=== PATIENT | male | born 1955 | race Caucasian/White ===

== ENCOUNTER → 2020-02-20 09:12 | Outpatient (CLI) | payer MEDICARE, OTHER, SELFPAY ==
--- NOTE | 2020-02-20 | DI.US.S_ITS ---
PROCEDURE: US ABD AORTA ANEURYSM SCREEN INDICATIONS: FAMILY HX OF ISCHEMIC HEART DISEASE TECHNIQUE: Real time scanning was performed of the aorta and iliac arteries, with image documentation. COMPARISON: None. FINDINGS: Aorta: Proximal aortic diameter measures 2.8 cm. Mid-aorta measures 2.2 cm. Distal aortic diameter is 2.0 cm. Iliac arteries: Right common iliac artery measures 1.6 cm. Left common iliac artery measures 1.6 cm. IMPRESSION: No abdominal aortic aneurysm. Proximal abdominal aorta is ectatic measuring 2.8 cm. A follow-up screening ultrasound is suggested in 5 years. Dictated by: Niurka Serrano M.D. on 02/20/2020 at 11:00 Approved by: Niurka Serrano M.D. on 02/20/2020 at 11:01
== END ==
PROVIDERS: PCP Family Medicine; Referring Provider Family Medicine; Visit Provider Family Medicine
DX: Z13.6 Encounter for screening for cardiovascular disorders (principal); I77.811 Abdominal aortic ectasia; Z82.49 Family history of ischemic heart disease and other diseases of the circulatory system
CPT/HCPCS: 76706

== ENCOUNTER → 2021-02-16 10:30 | Outpatient (CLI) | payer MEDICARE, OTHER, SELFPAY ==
--- NOTE | 2021-02-16 10:33 | DI.US.S_ITS ---
PROCEDURE: US SCROTUM INDICATIONS: RECURRENT/PERSISTENT SCROTAL FLUID COLLECTION TECHNIQUE: Real-time scanning was performed of the scrotum and testicles, with image documentation. Color and pulse Doppler interrogation was performed of both testicles. COMPARISON: None. FINDINGS: Right: Testicle is normal in size at 4.4 x 2.2 x 3.3 cm, and homogenous in echotexture. The visualized portions of the epididymis are normal in overall size and morphology. No varicoceles. Overlying scrotal skin is normal in thickness. A large fluid collection is seen posteroinferior to the right testicle measuring up to 11.6 x 4.9 x 7 cm with a few septations. Left: Testicle is normal in size at 5.3 x 2.2 x 3.3 cm, and homogeneous in echotexture. Epididymis is normal in overall size and morphology. No hydrocele or varicoceles. Overlying scrotal skin is normal in thickness. Doppler: Color and pulse Doppler demonstrate normal and symmetric arterial flow in both testicles. IMPRESSION: 1. No signs testicular torsion or epididymitis. 2. Large septated anechoic fluid collection in the right scrotum measures 11.6 x 4.9 x 7 cm, most likely a hydrocele or spermatocele. Dictated by: Robert Montano M.D. on 02/16/2021 at 13:44 Approved by: Robert Montano M.D. on 02/16/2021 at 13:50
== END ==
PROVIDERS: PCP Family Medicine; Referring Provider Specialist; Visit Provider Specialist
DX: N43.3 Hydrocele, unspecified (principal); R35.1 Nocturia
CPT/HCPCS: 76870; 99214

== ENCOUNTER → 2021-04-23 10:01 | Outpatient (CLI) | payer MEDICARE, OTHER, SELFPAY ==
[2021-04-23 19:37] LABS: Add Manual Diff / Slide Review NO; Basophils Absolute Auto 0 /uL (0-100); Basophils Percent Auto 0.5 % (0-2); Eosinophils Absolute Auto 300 /uL (0-450); Eosinophils Percent Auto 4.8 % (2-4); Hematocrit 46.2 % (41-53); Hemoglobin 15.4 g/dL (13.5-17.5); Lymphocytes Absolute Auto 1600 /uL (1100-4500); Lymphocytes Percent Auto 29.5 % (25-40); Mean Corpuscular HGB Conc 33.4 % (30-36); Mean Corpuscular Hemoglobin 30.2 PG (26-34); Mean Corpuscular Volume 90.4 fL (80-100); Monocytes Absolute Auto 500 /uL (0-900); Monocytes Percent Auto 8.5 % (3-14); Neutrophils Absolute Auto 3000 /uL (1500-7000); Neutrophils Percent Auto 56.7 % (50-75); Platelet Count 250 X10^3/uL (150-400); Red Cell Distribution Width 13.4 % (11.6-14.8); White Blood Cell Count 5.4 X10^3/uL (4.5-11.0)
[2021-04-23 19:44] LABS: Alanine Aminotransferase 21 IU/L (<50); Albumin 4.2 g/dL (3.5-5.0); Albumin Globulin Ratio 1.6 (1.0-2.8); Alkaline Phosphatase 52 U/L (38-126); Aspartate Aminotransferase 27 IU/L (17-59); BUN Creatinine Ratio 16.9 (6-22); Bilirubin Total 0.7 mg/dL (0.2-1.3); Blood Urea Nitrogen 13 mg/dL (9-20); Calcium 9.3 mg/dL (8.4-10.2); Carbon Dioxide 35 mmol/L (22-32); Chloride 104 mmol/L (98-107); Cholesterol 172 mg/dL (140-199); Estimated Glomerular Filt Rate > 60.0 mL/min (>60); Globulin 2.7 g/dL (1.7-4.1); Glucose 96 mg/dL (80-110); HDL Cholesterol 34 mg/dL (40-60); LDL Cholesterol Calculated 114 mg/dL (<100); Potassium 4.2 mmol/L (3.4-5.1); Sodium 142 mmol/L (137-145); Total Protein 6.9 g/dL (6.3-8.2); Triglycerides 118 mg/dL (35-150)
[2021-04-23 20:32] LABS: HEMOLYSIS < 15 (0-50); Prostate Specific Antigen Scrn 1.81 ng/mL (0.1-4.0)
== END ==
PROVIDERS: PCP Family Medicine; Visit Provider Family Medicine
DX: N52.9 Male erectile dysfunction, unspecified (principal); M54.16 Radiculopathy, lumbar region; Z12.5 Encounter for screening for malignant neoplasm of prostate; R79.89 Other specified abnormal findings of blood chemistry; Z13.220 Encounter for screening for lipoid disorders
CPT/HCPCS: 80053; 80061; 85025; G0103

== ENCOUNTER → 2022-04-30 10:19 | Outpatient (CLI) | payer MEDICARE, OTHER, SELFPAY | PROVIDERS: PCP Family Medicine; Referring Provider Family Medicine; Visit Provider Family Medicine | DX: R30.0 Dysuria (principal) | CPT/HCPCS: 87077; 87086; 87186 ==

== ENCOUNTER → 2022-06-22 08:44 | Outpatient (CLI) | payer MEDICARE, OTHER, SELFPAY ==
[2022-06-22 11:08] LABS: Cholesterol 204 mg/dL (140-199); Glucose 95 mg/dL (80-110); HDL Cholesterol 46 mg/dL (40-60); LDL Cholesterol Calculated 132 mg/dL (<100); Triglycerides 132 mg/dL (35-150)
[2022-06-22 11:39] LABS: Prostate Specific Antigen 3.01 ng/mL (0.10-4.00)
[2022-06-23 16:59] LABS: Hep C Virus Ab w/Reflex Quant NEGATIVE s/c (NEGATIVE)
== END ==
PROVIDERS: PCP Family Medicine; Referring Provider Family Medicine; Visit Provider Family Medicine
DX: N52.9 Male erectile dysfunction, unspecified (principal); Z12.5 Encounter for screening for malignant neoplasm of prostate; Z13.1 Encounter for screening for diabetes mellitus; Z13.220 Encounter for screening for lipoid disorders; Z11.59 Encounter for screening for other viral diseases; R35.1 Nocturia
CPT/HCPCS: 36415; 80061; 82947; 84153; 86803; G0103

== ENCOUNTER → 2023-08-03 08:58 | Outpatient (CLI) | payer MEDICARE, OTHER, SELFPAY ==
[2023-08-03 19:27] LABS: Cholesterol 177 mg/dL (140-199); Glucose 96 mg/dL (80-110); HDL Cholesterol 52 mg/dL (40-60); LDL Cholesterol Calculated 104 mg/dL (<100); Triglycerides 107 mg/dL (35-150)
[2023-08-03 19:57] LABS: Prostate Specific Antigen Scrn 2.08 ng/mL (0.1-4.0)
[2023-08-03 20:18] LABS: Hep C Virus Ab w/Reflex Quant NEGATIVE s/c (NEGATIVE)
== END ==
PROVIDERS: PCP Family Medicine; Visit Provider Family Medicine
DX: Z13.6 Encounter for screening for cardiovascular disorders (principal); Z12.5 Encounter for screening for malignant neoplasm of prostate; Z13.1 Encounter for screening for diabetes mellitus; Z13.220 Encounter for screening for lipoid disorders; Z11.59 Encounter for screening for other viral diseases
CPT/HCPCS: 80061; 82947; 86803; G0103

== ENCOUNTER → 2023-11-24 11:33 | Outpatient (CLI) | payer MEDICARE, OTHER, SELFPAY ==
[2023-11-24 18:09] LABS: Add Manual Diff / Slide Review NO; Basophils Absolute Auto 0 /uL (0-100); Basophils Percent Auto 0.8 % (0-2); Eosinophils Absolute Auto 200 /uL (0-450); Eosinophils Percent Auto 3.6 % (2-4); Hematocrit 44.5 % (41-53); Hemoglobin 15.1 g/dL (13.5-17.5); Lymphocytes Absolute Auto 1600 /uL (1100-4500); Lymphocytes Percent Auto 28.6 % (25-40); Mean Corpuscular HGB Conc 33.9 % (30-36); Mean Corpuscular Hemoglobin 31.3 PG (26-34); Mean Corpuscular Volume 92.2 fL (80-100); Monocytes Absolute Auto 500 /uL (0-900); Monocytes Percent Auto 8.6 % (3-14); Neutrophils Absolute Auto 3300 /uL (1500-7000); Neutrophils Percent Auto 58.4 % (50-75); Platelet Count 238 X10^3/uL (150-400); Red Blood Cell Count 4.82 X10^6/uL (4.5-5.9); Red Cell Distribution Width 13.8 % (11.6-14.8); White Blood Cell Count 5.6 X10^3/uL (4.5-11.0)
[2023-11-24 18:20] LABS: BUN Creatinine Ratio 24.7 (6-22); Blood Urea Nitrogen 18 mg/dL (9-20); Calcium 9.7 mg/dL (8.4-10.2); Carbon Dioxide 30 mmol/L (22-32); Chloride 103 mmol/L (98-107); Estimated Glomerular Filt Rate > 60 mL/min (>60); Glucose 96 mg/dL (80-110); HEMOLYSIS 32 (0-50); Potassium 4.5 mmol/L (3.4-5.1); Sodium 137 mmol/L (137-145)
== END ==
PROVIDERS: PCP Family Medicine; Visit Provider Family Medicine
DX: R00.2 Palpitations (principal)
CPT/HCPCS: 80048; 85025

== ENCOUNTER 2024-01-09 07:03 | Day surgery (SDC) | payer MEDICARE, OTHER, SELFPAY ==
--- NOTE | 2024-01-09 07:42 | P.HP_ITS ---
History of Present Illness History of Present Illness Date Patient Seen: 01/09/24 Time Patient Seen: 07:42 Chief complaint: Screening Colonoscopy Narrative: 68-year-old male here for screening colonoscopy. Last colonoscopy 10 years ago normal. Family history of colon cancer in father at age 68. No abdominal concerns today. REPLACED BY [facility] Medical History (Updated 01/09/24 @ 08:06 by Lit Marley MD) Nocturia Encounter for general adult medical examination with abnormal findings Travel advice encounter Screening for diabetes mellitus Screening for lipid disorders Screening for prostate cancer Family history of abdominal aortic aneurysm (AAA) Routine general medical examination at health care facility Surgical History History of hydrocele H/O hernia repair Family History (Updated 01/09/24 @ 08:07 by Lit Marley MD) Father Cancer Social History Smoking Status: Never smoker Meds Home Medications and Allergies Home Medications Medication Instructions Recorded Confirmed Type cholecalciferol (vitamin D3) 25 25 mcg PO DAILY 10/29/20 11/20/23 History mcg (1,000 unit) tablet niacinamide 500 mg tablet 500 mg PO DAILY 06/08/22 11/20/23 History red yeast rice 600 mg capsule 1,200 mg PO DAILY 06/08/22 11/20/23 History sildenafil 25 mg tablet 25 mg PO DAILY PRN sexual activity 06/21/23 11/20/23 Rx #100 tabs omega 9-lbc-voy-fish oil 100 1 cap PO DAILY 08/02/23 11/20/23 History mg-160 mg-1,000 mg capsule (Fish Oil) sodium,potassium,mag sulfates 17.5 See Rx Instructions PO .COMPLEX 12/04/23 Rx gram-3.13 gram-1.6 gram oral soln #354 mL (Suprep Bowel Prep Kit) Allergies Allergy/AdvReac Type Severity Reaction Status Date / Time No Known Drug Allergies Allergy Verified 01/09/24 08:00 Exam Narrative Exam Narrative: General adult man alert oriented no acute distress Chest nonlabored respiration Extremities warm well perfused Assessment & Plan Assessment and plan (1) Family history of colon cancer: Status: Acute Assessment & Plan narrative: The patient requires colorectal screening and colonoscopy is recommended. Technical details were discussed. Risks, benefits, alternatives explained. Risks including but not limited to myocardial infarction, aspiration, bleeding, pain, missed lesion, incomplete examination, need for further radiographic studies, intestinal injury, and need for major abdominal surgery were discussed. All questions were answered to their satisfaction, and they are in agreement with this plan. Time-Based Coding :: [TOTAL MINUTES] spent with patient and on the chart (including review of chart, obtaining history, exam, reviewing outside data, placing orders, documenting exam and treatment plan, and counseling patient) on [DATE].
--- NOTE | 2024-01-09 08:08 | P.OP.COLON_ITS ---
Operative Date/Time/Diagnoses Date of procedure: 01/09/24 Time of procedure: 08:08 Pre-op diagnosis: Family history of colon cancer, colorectal screening Procedure & Clinicians Study performed: Screening colonoscopy Same procedure as scheduled: Yes Indications: Colorectal screening, history of colon cancer in first-degree family member Surgeon: Lit Marley Procedure Notes Procedure in detail: The history and physical was performed/updated and the patient is ASA class is 2. The procedure was discussed in detail with the patient. Potential risks complications including infection, bleeding, missed diagnosis, perforation, need for surgery, and were explained. Their questions were answered and informed consent was obtained. Patient was brought to the procedure room and placed standard monitoring equipment. The patient's vital signs were monitored continuously throughout the entire procedure. Prior to starting time-out was performed. The patient was placed in the left lateral recumbent position. Procedural sedation was administered by anesthesia. Examination began with a thorough inspection of the perianal area there was no evidence of fissures, fistulae, external hemorrhoids or cutaneous malignancy. The colonoscopy scope was then placed into the anal canal and was advanced to the cecum, which was identified by the ileocecal valve, the appendiceal orifice and the confluence of the taenia. The scope was then slowly withdrawn examining colon thoroughly in all directions, irrigating it of any residual stool. The scope was retroflexed within the rectum The patient tolerated the procedure well. They will be discharged once criteria are met. The prep was of good/excellent quality. The withdrawl time was 7 minutes. FINDINGS * No mass or polyps * Mild diverticulosis of distal colon Specimen(s): none sent Impression: Diverticulosis Post-procedure Recommendations: Colonoscopy in 5 years Disposition: same day surgery
[2024-01-09 08:37] VITALS: BP 122/67; PULSE 68; RESP 10; TEMP 36.3; O2SAT 99
[2024-01-09 08:43] VITALS: BP 125/72; PULSE 63; RESP 12; O2SAT 98
[2024-01-09 08:50] VITALS: BP 125/77; PULSE 58; RESP 15; O2SAT 98
== END 2024-01-09 08:57 | disposition home or self-care (01) ==
PROVIDERS: PCP Family Medicine; Referring Provider Surgery; Visit Provider Surgery
PROC: 0DJD8ZZ Inspection of Lower Intestinal Tract, Via Natural or Artificial Opening Endoscopic (ICD-10-PCS; CPT 45378; principal; 2024-01-09 08:15)
DX: Z12.11 Encounter for screening for malignant neoplasm of colon (principal); Z80.0 Family history of malignant neoplasm of digestive organs; K57.30 Diverticulosis of large intestine without perforation or abscess without bleeding
CPT/HCPCS: G0105; J2704

== ENCOUNTER → 2024-02-19 11:27 | Outpatient (CLI) | payer MEDICARE, OTHER, SELFPAY ==
[2024-02-19 19:47] LABS: Creatine Kinase 90 U/L (55-170); Magnesium 1.7 mg/dL (1.6-2.3)
[2024-02-19 19:58] LABS: NT-proBNP (BNP-Adult 18+) 81 pg/mL (<125); Troponin I < 0.012 ng/mL (0.01-0.034)
[2024-02-19 20:24] LABS: Thyroid Stimulating Hormone 1.97 uIU/mL (0.47-4.68)
== END ==
PROVIDERS: PCP Family Medicine; Visit Provider Family Medicine
DX: I47.29 Other ventricular tachycardia (principal); R00.2 Palpitations; I48.91 Unspecified atrial fibrillation
CPT/HCPCS: 82550; 83735; 83880; 84443; 84484

== ENCOUNTER → 2024-02-26 10:01 | Outpatient (CLI) | payer MEDICARE, OTHER, SELFPAY ==
--- NOTE | 2024-02-27 17:35 | DI.NM.S_ITS ---
DATE OF SERVICE: 02/26/2024 PROCEDURE: Exercise perfusion study. INDICATIONS: Paroxysmal AFib, palpitation. RADIOPHARMACEUTICAL: 25.1 millicurie technetium-99m Myoview IV was injected at stress and 11.8 mCi technetium-99m Myoview IV was injected at rest. CARDIAC STRESS: The patient underwent exercise perfusion study under the supervision of an attending staff. He walked on Cristian protocol for 7 minutes, achieved 8 METS of workload, maximum heart rate 160, which was 106% of target heart rate. Resting blood pressure 128/82 and peak blood pressure 200/96 mmHg. Baseline rhythm sinus with repolarization changes and isolated PACs. During exercise at peak exercise, the patient developed up to 1.5 to 2 mm horizontal/downsloping ST depression in inferior leads and leads V3 to V6, which got improved within 1 minute in recovery. The patient also has intermittent PVCs including occasional ventricular couplets without any ventricular tachycardia. No obvious AFib seen. The patient had moderate shortness of breath with exercise. No chest pain. RAW DATA: There is increased subdiaphragmatic activity. GATED STUDY: Stress LV ejection fraction 70% without any obvious wall motion abnormalities. Resting end-diastolic volume 134 mL. TID ratio 0.94, which is within normal limits. Lung/heart ratio 0.21, which is within normal limits. MYOCARDIAL PERFUSION SCAN: Stress supine, resting supine and stress prone images were compared to each other. Stress and resting supine images revealed small size, mildly decreased perfusion of inferior wall extending into the basal inferoseptum, which got completely resolved during stress prone images suggestive of diaphragmatic tissue attenuation artifact. In addition to that, there is a small reversibility of distal anterior septum and distal anterior wall. CONCLUSION: This is an abnormal myocardial perfusion study consistent with small reversible ischemia of distal anterior wall extending into the distal anterior septum. Fair exercise tolerance. Ischemic EKG changes as stated above during exercise, which got resolved within 1 minute in recovery. Intermittent PVCs and occasional ventricular couplet without any ventricular tachycardia or AFib during exercise. No chest pain, but had shortness of breath. Overall, the patient walked on Cristian protocol for 7 minutes and 0 seconds. LV function is preserved. No transient ischemic dilatation. Correlate clinically. Consider cardiology evaluation. José MiguelPrudencio - CHAITANYA/ximena/KIRSTIE doc#: [id number]/job#: [id number] dd: 02/27/2024 14:02:00 dt: 02/27/2024 17:09:00 DICTATING MD/COPIES TO: Davon Marcial MD; Dr. Tiffanie Levin COPIES MNE: DIAMANTE; ; Dr. Tiffanie Levin
== END ==
LOC: NUCM 10:03
PROVIDERS: PCP Family Medicine; Referring Provider Family Medicine; Visit Provider Family Medicine
DX: I48.91 Unspecified atrial fibrillation (principal); I47.29 Other ventricular tachycardia; R06.83 Snoring; R94.39 Abnormal result of other cardiovascular function study
CPT/HCPCS: 78452; 93017; A9502

== ENCOUNTER → 2024-03-18 10:15 | Outpatient (CLI) | payer MEDICARE, OTHER, SELFPAY ==
--- NOTE | 2024-03-18 10:17 | DI.ECHO.S_ITS ---
[facility]+ [facility] : : [id number] : : [place] : : [id number] : : Phone: [phone] Echocardiogram Report + + :Name: IHSAN HARTMAN Study Date: 03/18/2024 Height: 73 in : :[facility] ReadingLocation: Weight: 190 lb : : Gender: Male BSA: 2.1 m2 : :: 1955 Age: 68 yrs BP: 157/86 mmHg: :Reason For Study: ATRIAL FIBRILLATION : :Ordering Physician: HERRERA, : :SANDIE : :Referring: SANDIE SILVERMAN : + + Interpretation Summary The ejection fraction is estimated to be 60-65%. The right ventricular systolic function is normal. The right ventricular systolic pressure is estimated to be at least 36 mmHg based on an estimated right atrial pressure of 8 mm Hg. No significant valvular abnormality. Procedure: A two-dimensional transthoracic echocardiogram with color flow and Doppler was performed. The study quality was technically good. There is no prior echocardiogram noted for this patient. The patient was in normal sinus rhythm during the exam. Left Ventricle: The left ventricle is normal in size. Left ventricular wall thickness is mildly increased. There is no ventricular septal defect visualized. The ejection fraction is estimated to be 60-65%. There are no focal wall motion abnormalities. Diastolic parameters suggest probable normal left ventricular diastolic function and normal filling pressures. Right Ventricle: The right ventricle is mildly dilated. The right ventricular systolic function is normal. Atria: The left atrium is mildly dilated. The right atrium is mild to moderately dilated. There is no Doppler evidence for an interatrial shunt. Mitral Valve: The mitral valve leaflets appear mildly thickened, but open well. There is mild mitral regurgitation. Aortic Valve: The aortic valve is trileaflet. The aortic valve is mildly calcified. There is no aortic valve stenosis. No aortic regurgitation is present. Tricuspid Valve: The tricuspid valve leaflets are thin and pliable. There is trace tricuspid regurgitation. The right ventricular systolic pressure is estimated to be at least 36 mmHg based on an estimated right atrial pressure of 8 mm Hg. Pulmonic Valve: The pulmonic valve is not well visualized. Great Vessels: The aortic root is normal size. The dimensions of the ascending aorta are normal. The pulmonary artery is normal size. The IVC is dilated (diameter is greater than 2.1 cm) yet it collapses greater than 50% with a sniff. This suggests a right atrial pressure of 8 mm Hg. Pericardium/ Pleura There is no pericardial effusion. There is no pleural effusion. MMode/2D Measurements & Calculations LVIDd: 4.8 cm LVOT diam: 2.0 cm LVIDs: 3.1 cm Ao root diam: 3.5 cm FS: 36.1 % asc Aorta Diam: 3.4 cm EPSS: 0.63 cm Ao Arch Diam (Prox Trans): 1.9 cm IVSd: 1.1 cm LVPWd: 1.1 cm LV ornelas. diameter/BSA (cm/m^2): 2.3 LV sys. diameter/BSA (cm/m^2): 1.5 LA A2 area: 23.8 cm2 RA long axis: 5.6 cm LA A4 area: 21.2 cm2 RA area: 22.4 cm2 LA length (vol): 5.6 cm RA vol: 76.3 ml LA vol: 76.3 ml RA : 36.2 ml/m2 LA vol index: 36.3 ml/m2 IVC diam: 2.3 cm RVD1 (basal): 4.3 cm RVD2 (mid): 3.4 cm TAPSE: 3.3 cm Doppler Measurements & Calculations Ao V2 max: 174.3 cm/sec LVOT Max Soto: 135.5 cm/sec Ao V2 mean: 115.4 cm/sec LV V1 max P.3 mmHg Ao max P.2 mmHg LV V1 VTI: 32.5 cm Ao mean P.0 mmHg TOMER(I,D): 2.8 cm2 Ao V2 VTI: 36.5 cm TOMER(V,D): 2.5 cm2 sev ratio: 0.89 TOMER indexed to BSA (cm^2/m^2): 1.3 MV E max soto: 65.7 cm/sec TR max soto: 265.8 cm/sec MV A max soto: 62.8 cm/sec TR max P.3 mmHg MV E/A: 1.0 Med Peak E' Soto: 7.0 cm/sec E/E' med: 9.4 Lat Peak E' Soto: 7.3 cm/sec E/E' lat: 9.0 E/e' average: 9.2 MV dec time: 0.23 sec SV([facility]): 103.5 ml Reading Physician:ESTRELLA
== END ==
PROVIDERS: PCP Family Medicine; Referring Provider Family Medicine; Visit Provider Family Medicine
DX: I34.0 Nonrheumatic mitral (valve) insufficiency (principal); I48.91 Unspecified atrial fibrillation; I47.29 Other ventricular tachycardia; R06.83 Snoring
CPT/HCPCS: 93306

== ENCOUNTER → 2024-04-18 10:01 | Outpatient (CLI) | payer MEDICARE, OTHER, SELFPAY ==
[2024-04-18 22:17] LABS: Cholesterol 197 mg/dL (140-199); HDL Cholesterol 51 mg/dL (40-60); LDL Cholesterol Calculated 124 mg/dL (<100); Triglycerides 109 mg/dL (35-150)
[2024-04-18 23:26] LABS: Prostate Specific Antigen Scrn 1.97 ng/mL (0.1-4.0)
== END ==
PROVIDERS: PCP Family Medicine; Visit Provider Family Medicine
DX: Z12.5 Encounter for screening for malignant neoplasm of prostate (principal); I25.10 Atherosclerotic heart disease of native coronary artery without angina pectoris
CPT/HCPCS: 80061; G0103

== ENCOUNTER → 2024-07-18 11:34 | Outpatient (CLI) | payer MEDICARE, OTHER, SELFPAY ==
[2024-07-18 19:07] LABS: Add Manual Diff / Slide Review NO; Basophils Absolute Auto 0 /uL (0-100); Basophils Percent Auto 0.7 % (0-2); Eosinophils Absolute Auto 200 /uL (0-450); Eosinophils Percent Auto 4.2 % (2-4); Hemoglobin 14.3 g/dL (13.5-17.5); Lymphocytes Absolute Auto 1400 /uL (1100-4500); Lymphocytes Percent Auto 27.4 % (25-40); Mean Corpuscular HGB Conc 34.1 % (30-36); Mean Corpuscular Hemoglobin 31.2 PG (26-34); Mean Corpuscular Volume 91.6 fL (80-100); Monocytes Absolute Auto 400 /uL (0-900); Monocytes Percent Auto 7.9 % (3-14); Neutrophils Absolute Auto 3100 /uL (1500-7000); Neutrophils Percent Auto 59.8 % (50-75); Platelet Count 239 X10^3/uL (150-400); Red Blood Cell Count 4.59 X10^6/uL (4.5-5.9); Red Cell Distribution Width 14.1 % (11.6-14.8); White Blood Cell Count 5.3 X10^3/uL (4.5-11.0)
[2024-07-18 19:18] LABS: Alanine Aminotransferase 24 IU/L (<50); Albumin 4.2 g/dL (3.5-5.0); Albumin Globulin Ratio 1.8 (1.0-2.8); Alkaline Phosphatase 55 U/L (38-126); Aspartate Aminotransferase 30 IU/L (17-59); BUN Creatinine Ratio 20.3 (6-22); Bilirubin Total 0.5 mg/dL (0.2-1.3); Blood Urea Nitrogen 13 mg/dL (9-20); Calcium 9.2 mg/dL (8.4-10.2); Carbon Dioxide 28 mmol/L (22-32); Chloride 105 mmol/L (98-107); Estimated Glomerular Filt Rate > 60 mL/min (>60); Globulin 2.4 g/dL (1.7-4.1); Glucose 98 mg/dL (70-99); HEMOLYSIS < 15 (0-50); Potassium 4.6 mmol/L (3.4-5.1); Prothrombin Time 11.7 SECONDS (9.4-12.5); Sodium 139 mmol/L (137-145); Total Protein 6.6 g/dL (6.3-8.2)
[2024-07-18 19:20] LABS: PTT Partial Thromboplastin Tim 33 SECONDS (25.1-36.5)
== END ==
PROVIDERS: PCP Family Medicine; Visit Provider Family Medicine
DX: I48.91 Unspecified atrial fibrillation (principal)
CPT/HCPCS: 80053; 85025; 85610; 85730

== ENCOUNTER → 2024-12-03 09:53 | Outpatient (CLI) | payer MEDICARE, OTHER, SELFPAY ==
[2024-12-03 19:10] LABS: Cholesterol 189 mg/dL (140-199); HDL Cholesterol 60 mg/dL (40-60); Triglycerides 109 mg/dL (35-150)
== END ==
LOC: LAB 09:53
PROVIDERS: PCP Family Medicine; Visit Provider Family Medicine
DX: I25.10 Atherosclerotic heart disease of native coronary artery without angina pectoris (principal); I48.91 Unspecified atrial fibrillation; E78.5 Hyperlipidemia, unspecified
CPT/HCPCS: 80061

== ENCOUNTER → 2025-01-03 11:25 | Outpatient (CLI) | payer MEDICARE, OTHER, SELFPAY ==
--- NOTE | 2025-01-03 11:28 | DI.US.S_ITS ---
PROCEDURE: US ABD AORTA ANEURYSM SCREEN INDICATIONS: Screening serial. FHx aortic aneurysm. Last 2019 TECHNIQUE: Real time scanning was performed of the aorta and iliac arteries, with image documentation. COMPARISON: [facility], , ABD AORTA ANEURYSM SCREEN, 02/20/2020, 9:36. FINDINGS: Aorta: The proximal aorta is not seen, secondary to overlying bowel gas. Mid-aorta measures 2.1 x 2 cm. Distal aortic diameter is 2 x 2 cm. Iliac arteries: Right common iliac artery measures 1.1 x 1.1 cm. Left common iliac artery measures 1.1 x 1.1 cm. IMPRESSION: Negative for aneurysm. Dictated by: Hemant Hermosillo M.D. on 01/03/2025 at 14:32 Approved by: Hemant Hermosillo M.D. on 01/03/2025 at 14:32
== END ==
LOC: US 11:27
PROVIDERS: PCP Family Medicine; Referring Provider Family Medicine; Visit Provider Family Medicine
DX: Z13.6 Encounter for screening for cardiovascular disorders (principal); Z82.49 Family history of ischemic heart disease and other diseases of the circulatory system
CPT/HCPCS: 76706